=== PATIENT | female | born 1950 | race Caucasian/White ===

== ENCOUNTER 2017-06-22 07:19 | Emergency (ER) | payer MEDICARE, OTHER ==
[~2017-06-22] VITALS: Ht 160 cm; Wt 92.0 kg
[~2017-06-22 07:19] MED LIST: BENA10 PO; BENZ100 PO; IBUP-232 PO; LEVA750T9 PO; MEDR4PAK3 PO; TEMA15 PO; VENTAER INH
[2017-06-22 07:22] VITALS: BP 176/76; PULSE 65; RESP 22; TEMP 97.9; O2SAT 99
[2017-06-22] MEDS ORDERED: KETOROLAC TROMETHAMINE 60 MG/2 ML (IM) VIAL IM ONE (07:45)
[2017-06-22] MEDS ORDERED: HYDR25TA5 PO (08:03)
[2017-06-22] MEDS ORDERED: ONDANSETRON ODT 4 MG TAB PO ONE (08:30)
[2017-06-22] MEDS ORDERED: diphenhydrAMINE HCL 25 MG CAP PO ONE (08:30)
[2017-06-22] MEDS ORDERED: MORPHINE SULFATE 4 MG/ML INJ IM ONE (08:30)
[2017-06-22 09:37] VITALS: BP 135/77; PULSE 68; RESP 18; O2SAT 98
--- NOTE | 2017-06-22 10:00 | RADRPT ---
EXAM DATE/TIME: 06/22/2017 08:59 [place] COMPARISON: No previous studies available for comparison. INDICATIONS : Lower back pain radiating down left leg. No injury. RADIATION DOSE: 40.15 CTDIvol (mGy) MEDICAL HISTORY : Hypertension. SURGICAL HISTORY : Gastric bypass. section.Hernia repair. ENCOUNTER: Initial ACUITY: 3 days PAIN SCALE: 8/10 LOCATION: spine TECHNIQUE: Volumetric scanning of the lumbar spine was performed. Multiplanar reconstructions in the sagittal, coronal and oblique axial planes were performed. Using automated exposure control and adjustment of the mA and/or kV according to patient size, radiation dose was kept as low as reasonably achievable t o obtain optimal diagnostic quality images. DICOM format image data is available electronically for review and comparison. FINDINGS: Sagittal and coronal reformats are provided. These demonstrate minimal convex left scoliosis. There a re degenerated discs throughout the lumbar spine. No acute compression fracture is seen. There is grade 1 anterolisthesis of L4 relative to L5. The paraspinous soft tissues are unremarkable. T12-L1: The thecal sac has a normal diameter. No evidence of disc bulge or protrusion. The neural foramina are patent bilaterally. There is minimal facet arthritis bilaterally. L1-L2: The thecal sac has a normal diameter. No evidence of disc bulge or protrusion. The neural foramina are patent bilaterally. There is mild facet arthritis bilaterally. L2-L3: There is a degenerated disc with broad-based disc bulge and diffuse osteophytic ridging. There is mod erate facet arthritis bilaterally with degenerative facet and ligamentous hypertrophy. The residual t hecal space and foramina appear adequate. L3-L4: There is a degenerated disc with broad-based disc bulge. This effaces the ventral thecal sac. There i s mild encroachment of disc bulge on the lateral recess and base of the foramina bilaterally. There i s moderate facet arthritis bilaterally. L4-L5: There is severe facet arthritis bilaterally. There is degenerative facet and ligamentous hypertrophy. There is a degenerated disc with broad-based disc bulge. This effaces the ventral thecal sac. These changes combined and result in at least a mild to moderate degree of spinal stenosis and bilateral fo raminal narrowing. L5-S1: There is a degenerated disc with broad-based disc bulge effacing the ventral thecal sac. There is enc roachment of disc bulge on the lateral recess and base of the foramina on the left. There slight encr oachment on the right as well. There is mild facet arthritis bilaterally. CONCLUSION: 1. Advanced degenerative changes at L2/3, L4/5 and L5/S1. The individual levels are dictated in detai l above. Fei Pressley MD on June 22, 2017 at 9:52 Board Certified Radiologist. This report was verified electronically.
[2017-06-22] MEDS ORDERED: TRAM50TA PO (10:21)
--- NOTE | 2017-06-22 10:21 | PD ---
HPI Chief Complaint: Back/ Neck Pain or Injury Time Seen by Provider: 07:26 Travel History International Travel<30 days: No Contact w/Intl Traveler<30days: No Traveled to known affect area: No History of Present Illness HPI This is a 67-year-old female presented complaining of lower back pain. Patient denies any trauma to the back no fever or chills or point tenderness. Patient has history of sciatica and states that the pain is chronic for the last few years but it got worse in the last few weeks. Patient is 7 out of 10, comes and goes, radiates to the left leg, nothing makes it worse or better. Patient tries taken ibuprofen at home and did not help. She has an appointment with orthopedic in a week and states that she will try to make it earlier. PFSH Past Medical History Diminished Hearing: No Hypertension: Yes Tetanus Vaccination: < 5 Years Influenza Vaccination: Yes Menopausal: Yes Past Surgical History Abdominal Surgery: Yes (HERNIA, TUMMY TUCK, GASTRIC BYPASS) Section: Yes Cholecystectomy: Yes Gynecologic Surgery: Yes (BREAST REDUCTION) Social History Alcohol Use: Yes (Rarely) Tobacco Use: No Substance Use: No Allergies-Medications (Allergen,Severity, Reaction): Coded Allergies: Sulfa (Sulfonamide Antibiotics) (Unverified Allergy, Severe, hives and rash, 06/22/17) bee venom protein (honey bee) (Unverified Allergy, Severe, hives, 06/22/17) iodine (Unverified Allergy, Severe, hives, 06/22/17) potassium iodide (Unverified Allergy, Severe, hives, 06/22/17) povidone-iodine (Unverified Allergy, Severe, hives, 06/22/17) sodium iodide (Unverified Allergy, Severe, hives, 06/22/17) sodium iodide (Unverified Allergy, Severe, hives, 06/22/17) latex (Unverified Allergy, Mild, Rash, 06/22/17) morphine (Unverified Adverse Reaction, Severe, vomits, 06/22/17) codeine (Unverified Adverse Reaction, Intermediate, NAUSEA/VOMITING, ) Reported Meds & Prescriptions Reported Meds & Active Scripts Active Reported Hydrochlorothiazide 25 Mg Tab 25 Mg PO DAILY Review of Systems Except as stated in HPI: all other systems reviewed are Neg Physical Exam Narrative GENERAL: Alert oriented 3 in no acute distress. SKIN: Focused skin assessment warm/dry. HEAD: Atraumatic. Normocephalic. EYES: Pupils equal and round. No scleral icterus. No injection or drainage. ENT: No nasal bleeding or discharge. Mucous membranes pink and moist. NECK: Trachea midline. No JVD. CARDIOVASCULAR: Regular rate and rhythm. No murmur appreciated. RESPIRATORY: No accessory muscle use. Clear to auscultation. Breath sounds equal bilaterally. GASTROINTESTINAL: Abdomen soft, non-tender, nondistended. Hepatic and splenic margins not palpable. MUSCULOSKELETAL: No obvious deformities. No clubbing. No cyanosis. No edema. NEUROLOGICAL: Awake and alert. No obvious cranial nerve deficits. Motor grossly within normal limits. Normal speech. PSYCHIATRIC: Appropriate mood and affect; insight and judgment normal. Data Data Last Documented VS Vital Signs Date Time Temp Pulse Resp B/P (MAP) Pulse Ox O2 Delivery O2 Flow Rate FiO2 06/22/17 09:37 68 18 135/77 (96) 98 Room Air 06/22/17 07:22 97.9 Orders Orders Ketorolac Inj (Toradol Inj) (06/22/17 07:45) Morphine Inj (Morphine Inj) (06/22/17 08:30) Ondansetron Odt (Zofran Odt) (06/22/17 08:30) Diphenhydramine (Benadryl) (06/22/17 08:30) Ct Lumb Spine W/O Contrast (06/22/17 ) MDM Medical Decision Making Medical Screen Exam Complete: Yes Emergency Medical Condition: Yes Differential Diagnosis Sciatica, degenerative disc disease, abscess. Narrative Course This is a 63-year-old female with history of chronic back pain presents the office for lower back pain that got worse last week. She denies any fevers chills or night sweats, there is no point tenderness over the vertebra on physical exam and the rest of the physical exam is unremarkable as well. CAT scan shows degenerative disc disease, we will give the patient pain pills and I will have her follow-up with her orthopedic. Patient agrees with plan of care and stable to be discharged. Last 24 [address] Impressions [address] 06/22/17 0000 Signed Impressions: Service Date/Time: Thursday, June 22, 2017 08:59 - CONCLUSION: 1. Advanced degenerative changes at L2/3, L4/5 and L5/S1. The individual levels are dictated in detail above. Fei Pressley MD Diagnosis Primary Impression: Degenerative disc disease, lumbar Additional Instructions: follow-up with orthopedics return to the ER if symptoms change or do not improve. Scripts Tramadol (Tramadol) 50 Mg Tab 50 MG PO Q4H Y for PAIN, #15 TAB 0 Refills Prov: Gallito Carranza MD 06/22/17 Disposition: 01 DISCHARGE HOME Condition: Stable Gallito Carranza MD Jun 22, 2017 10:21
[2017-06-22] MEDS ORDERED: traMADol HCL 50 MG TAB PO ONE (10:45)
== END 2017-06-22 11:01 | disposition home or self-care (01) ==
LOC: PHED 07:19
DX: M51.36 Other intervertebral disc degeneration, lumbar region (principal); I10 Essential (primary) hypertension
CPT/HCPCS: 72131; 96372; 99283; J1885; J2270